=== PATIENT | male | born 1970 | race Caucasian/White ===

== ENCOUNTER → 2023-05-11 13:35 | Outpatient (CLI) | payer OTHER, SELFPAY ==
[2023-05-11 14:54] LABS: Add Manual Diff / Slide Review NO; Basophils Absolute Auto 100 /uL (0-100); Basophils Percent Auto 0.9 % (0-2); Eosinophils Absolute Auto 100 /uL (0-450); Eosinophils Percent Auto 1.2 % (2-4); Hematocrit 45.5 % (41-53); Hemoglobin 15.4 g/dL (13.5-17.5); Lymphocytes Absolute Auto 2500 /uL (1100-4500); Mean Corpuscular HGB Conc 33.8 % (30-36); Mean Corpuscular Hemoglobin 30.1 PG (26-34); Mean Corpuscular Volume 89.1 fL (80-100); Monocytes Absolute Auto 500 /uL (0-900); Monocytes Percent Auto 6.1 % (3-14); Neutrophils Absolute Auto 4700 /uL (1500-7000); Neutrophils Percent Auto 59.8 % (50-75); Platelet Count 270 X10^3/uL (150-400); Red Blood Cell Count 5.11 X10^6/uL (4.5-5.9); Red Cell Distribution Width 14.3 % (11.6-14.8); White Blood Cell Count 7.8 X10^3/uL (4.5-11.0)
[2023-05-11 15:02] LABS: Hemoglobin A1C% w Est Avg Glu 5.3 % (4.0-6.0)
[2023-05-11 15:16] LABS: Alanine Aminotransferase 33 IU/L (<50); Albumin 4.5 g/dL (3.5-5.0); Albumin Globulin Ratio 1.2 (1.0-2.8); Alkaline Phosphatase 59 U/L (38-126); Aspartate Aminotransferase 26 IU/L (17-59); BUN Creatinine Ratio 22.6 (6-22); Bilirubin Total 0.7 mg/dL (0.2-1.3); Blood Urea Nitrogen 21 mg/dL (9-20); Calcium 9.6 mg/dL (8.4-10.2); Carbon Dioxide 29 mmol/L (22-32); Chloride 104 mmol/L (98-107); Cholesterol 216 mg/dL (140-199); Estimated Glomerular Filt Rate > 60 mL/min (>60); Globulin 3.9 g/dL (1.7-4.1); Glucose 90 mg/dL (70-100); HDL Cholesterol 32 mg/dL (40-60); HEMOLYSIS < 15 (0-50); LDL Cholesterol Calculated 157 mg/dL (<100); Sodium 140 mmol/L (137-145); Total Protein 8.4 g/dL (6.3-8.2); Triglycerides 135 mg/dL (35-150); Uric Acid 9.9 mg/dL (3.5-8.5)
[2023-05-11 15:45] LABS: Prostate Specific Antigen 1.58 ng/mL (0.10-4.00)
== END ==
PROVIDERS: PCP Family Medicine; Referring Provider Family Medicine; Visit Provider Family Medicine
DX: Z00.00 Encounter for general adult medical examination without abnormal findings (principal); I10 Essential (primary) hypertension; M10.9 Gout, unspecified; Z80.0 Family history of malignant neoplasm of digestive organs
CPT/HCPCS: 36415; 80053; 80061; 83036; 84153; 84550; 85025

== ENCOUNTER → 2024-05-12 15:11 | Outpatient (CLI) | payer OTHER, SELFPAY ==
[2024-05-12 16:03] LABS: Hemoglobin A1C% w Est Avg Glu 5.4 % (4.0-6.0)
[2024-05-12 16:07] LABS: Alanine Aminotransferase 42 IU/L (<50); Albumin 4.5 g/dL (3.5-5.0); Albumin Globulin Ratio 1.6 (1.0-2.8); Alkaline Phosphatase 60 U/L (38-126); Aspartate Aminotransferase 33 IU/L (17-59); BUN Creatinine Ratio 14.6 (6-22); Bilirubin Total 0.8 mg/dL (0.2-1.3); Blood Urea Nitrogen 13 mg/dL (9-20); Calcium 9.2 mg/dL (8.4-10.2); Carbon Dioxide 27 mmol/L (22-32); Chloride 102 mmol/L (98-107); Cholesterol 216 mg/dL (140-199); Estimated Glomerular Filt Rate > 60 mL/min (>60); Globulin 2.8 g/dL (1.7-4.1); Glucose 94 mg/dL (70-100); HDL Cholesterol 34 mg/dL (40-60); HEMOLYSIS < 15 (0-50); LDL Cholesterol Calculated 155 mg/dL (<100); Potassium 3.8 mmol/L (3.4-5.1); Sodium 138 mmol/L (137-145); Total Protein 7.3 g/dL (6.3-8.2); Triglycerides 136 mg/dL (35-150); Uric Acid 9.2 mg/dL (3.5-8.5)
[2024-05-12 16:16] LABS: Rheumatoid Factor < 8.6 IU/mL (<12.0)
[2024-05-12 16:30] LABS: Erythrocyte Sedimentation Rate 9 MM/HR (0-15)
[2024-05-12 16:38] LABS: TSH w/ Reflex to FT4 2.66 uIU/mL (0.47-4.68)
== END ==
PROVIDERS: PCP Family Medicine; Referring Provider Family Medicine; Visit Provider Family Medicine
DX: M10.9 Gout, unspecified (principal); I10 Essential (primary) hypertension; R73.03 Prediabetes; E78.5 Hyperlipidemia, unspecified; M25.50 Pain in unspecified joint
CPT/HCPCS: 36415; 80053; 80061; 83036; 84443; 84550; 85598; 85613; 85651; 86038; 86200; 86430

== ENCOUNTER 2024-07-13 13:53 | Emergency (ER) | payer OTHER, SELFPAY ==
[2024-07-13 14:27] VITALS: BP 170/99; PULSE 89; RESP 20; TEMP 37.1; O2SAT 96; BMI 52.1
--- NOTE | 2024-07-13 15:10 | DI.US.S_ITS ---
PROCEDURE: US PERIPH VENOUS UP EXTREM RT INDICATIONS: right arm pain and swelling TECHNIQUE: Real-time imaging, as well as color and pulse Doppler interrogation, was performed of the upper extremity deep veins from the inferior neck to the antecubital fossa. COMPARISON: None. FINDINGS: The internal jugular vein, visualized portions of the subclavian vein, axillary, and brachial veins are free of intraluminal thrombus. Where physically possible, the veins are normally compressible. Color and pulse Doppler demonstrate normal intraluminal flow, with expected phasicity and pulsatility. Additional scanning of the cephalic and basilic veins of the superficial system demonstrates normal compressibility, without thrombus. IMPRESSION: No findings of upper extremity deep venous thrombosis can be seen. Dictated by: Mic Garcia M.D. on 07/13/2024 at 16:40 Approved by: Mic Garcia M.D. on 07/13/2024 at 16:40
[2024-07-13 15:45] LABS: Add Manual Diff / Slide Review NO; Basophils Absolute Auto 100 /uL (0-100); Basophils Percent Auto 0.5 % (0-2); Eosinophils Absolute Auto 100 /uL (0-450); Eosinophils Percent Auto 0.6 % (2-4); Hematocrit 42.4 % (41-53); Hemoglobin 14.5 g/dL (13.5-17.5); Lymphocytes Absolute Auto 1700 /uL (1100-4500); Lymphocytes Percent Auto 15.7 % (25-40); Mean Corpuscular HGB Conc 34.2 % (30-36); Mean Corpuscular Hemoglobin 31.1 PG (26-34); Monocytes Absolute Auto 800 /uL (0-900); Monocytes Percent Auto 7.9 % (3-14); Neutrophils Absolute Auto 8100 /uL (1500-7000); Neutrophils Percent Auto 75.3 % (50-75); Platelet Count 246 X10^3/uL (150-400); Red Blood Cell Count 4.65 X10^6/uL (4.5-5.9); Red Cell Distribution Width 13.4 % (11.6-14.8); White Blood Cell Count 10.7 X10^3/uL (4.5-11.0)
[2024-07-13 15:56] LABS: Alanine Aminotransferase 20 IU/L (<50); Albumin 4.4 g/dL (3.5-5.0); Albumin Globulin Ratio 1.3 (1.0-2.8); Alkaline Phosphatase 50 U/L (38-126); Aspartate Aminotransferase 18 IU/L (17-59); BUN Creatinine Ratio 10.3 (6-22); Bilirubin Total 1.2 mg/dL (0.2-1.3); Blood Urea Nitrogen 10 mg/dL (9-20); C-Reactive Protein Quant 6.2 mg/dL (<1.0); Calcium 9.2 mg/dL (8.4-10.2); Carbon Dioxide 30 mmol/L (22-32); Chloride 101 mmol/L (98-107); Estimated Glomerular Filt Rate > 60 mL/min (>60); Globulin 3.3 g/dL (1.7-4.1); Glucose 106 mg/dL (70-99); HEMOLYSIS < 15 (0-50); Potassium 3.5 mmol/L (3.4-5.1); Sodium 140 mmol/L (137-145); Total Protein 7.7 g/dL (6.3-8.2); Uric Acid 8.3 mg/dL (3.5-8.5)
[2024-07-13 16:04] LABS: Erythrocyte Sedimentation Rate 46 MM/HR (0-15)
--- NOTE | 2024-07-13 17:10 | ED.EXTPRO ---
HPI - Extremity Problem <Noris Christopher PA-C - Last Filed: 07/13/24 19:46> General Chief complaint: Extremity Problem,Nontraumatic Stated complaint: Rt arm and wrist swollen x 3 days - pain Time Seen by Provider: 07/13/24 15:08 Source: patient Mode of arrival: Ambulatory History of Present Illness HPI Narrative: Mr. Yan is a very pleasant 54-year-old male with a past medical history of gout, hypertension who presents to the emergency department for right wrist and elbow pain and swelling x3 days. Patient states he struggles with a history of gout that moves throughout his various joints. He has never had a joint aspiration but has been told his uric acid levels are high and his symptoms always respond to prednisone. Typically he gets joint inflammation in the lower legs however he is now reporting his right elbow, right wrist and right forearm are feeling extremely painful and swollen consistent with prior gout. Denies any direct trauma to the arm, no numbness tingling or weakness. No fevers, chills, redness, nausea, vomiting, flu-like symptoms. He is requesting prednisone, states his PCP office was unable to prescribe it for him. Related Data Previous Rx's Medication Instructions Recorded prednisone 50 mg tablet 50 mg PO DAILY PRN gout #7 tabs 05/12/24 probenecid 500 mg tablet 500 mg PO BID #60 tabs 05/12/24 verapamil 80 mg tablet 80 mg PO BEDTIME #90 tabs 05/22/24 lisinopril 40 mg tablet 40 mg PO BID #180 tabs 05/24/24 prednisone 10 mg tablets in a dose See Rx Instructions PO .COMPLEX 07/13/24 pack #21 ea Allergies Allergy/AdvReac Type Severity Reaction Status Date / Time No Known Drug Allergies Allergy Unverified 05/12/24 14:27 Review of Systems <Noris Christopher PA-C - Last Filed: 07/13/24 19:46> Review of Systems ROS Unobtainable: All systems reviewed & are unremarkable except as noted in HPI and below Patient History <Noris Christopher PA-C - Last Filed: 07/13/24 19:46> Medical History Polyarthralgia Hyperlipidemia Chicken pox Kidney stones (~1989) Diverticular disease (~2006) Family history of colon cancer Preventative health care Gout (~1989) Hypertension (~1989) Family History Father Cancer Hypertension Stroke Mother Cancer Hypertension Grandfather Clovis-Creutzfeldt disease Grandmother Hypertension Grandfather Hypertension Grandmother Hypertension Social History Smoking Status: Never smoker Smoking Status: Never smoker Exam <Noris Christopher PA-C - Last Filed: 07/13/24 19:46> Narrative Exam Narrative: GENERAL: 54 year old patient appears stated age. Obese patient, in no acute distress. HEAD: Atraumatic. Normocephalic. NECK: Trachea midline. Cervical ROM intact. CARDIOVASCULAR: Regular rate and rhythm. RESPIRATORY: Nonlabored respirations. Speaking in clear, full sentences. Clear to auscultation. EXTREMITIES: Patient has mild but diffuse edema of the right upper extremity from the elbow through the hand. Brisk capillary refill and palpable radial pulse. His position of comfort is with the right elbow flexed, he has pain with range of motion of both the elbow and the wrist. Sensation intact to light touch. Mild erythema on the dorsal aspect of the right wrist however patient states that this is from rubbing it. NEURO: AOx3. Clear speech. SKIN: No rash of visible areas Initial Vital Signs Initial Vital Signs: Vital Signs Temperature 98.8 F 07/13/24 14:27 Pulse Rate 89 07/13/24 14:27 Respiratory Rate 20 07/13/24 14:27 Blood Pressure 170/99 H 07/13/24 14:27 Pulse Oximetry 96 07/13/24 14:27 Oxygen Delivery Method Room Air 07/13/24 14:27 <Mackenzie Diaz MD - Last Filed: 07/16/24 05:39> Initial Vital Signs Initial Vital Signs: Vital Signs Temperature 98.8 F 07/13/24 14:27 Pulse Rate 89 07/13/24 14:27 Respiratory Rate 20 07/13/24 14:27 Blood Pressure 170/99 H 07/13/24 14:27 Pulse Oximetry 96 07/13/24 14:27 Oxygen Delivery Method Room Air 07/13/24 14:27 Course <Noris Christopher PA-C - Last Filed: 07/13/24 19:46> Orders Ordered: Discontinued Medications Ketorolac Tromethamine (Ketorolac 30 Mg/Ml Vial) 30 mg IM NOW ONE Stop: 07/13/24 17:26 Last Admin: 07/13/24 17:33 Dose: 30 mg Documented By: RB Prednisone (Prednisone 20 Mg Tablet) 60 mg PO NOW ONE Stop: 07/13/24 17:26 Last Admin: 07/13/24 17:33 Dose: 60 mg Documented By: RB Vital Signs Vital signs: Vital Signs - 8 hr 07/13/24 14:27 07/13/24 17:54 Temperature 98.8 F 98.1 F Pulse Rate 89 76 Respiratory Rate 20 15 Blood Pressure 170/99 H 176/99 H Pulse Oximetry 96 98 Oxygen Delivery Method Room Air Room Air <Mackenzie Diaz MD - Last Filed: 07/16/24 05:39> Orders Ordered: Discontinued Medications Ketorolac Tromethamine (Ketorolac 30 Mg/Ml Vial) 30 mg IM NOW ONE Stop: 07/13/24 17:26 Last Admin: 07/13/24 17:33 Dose: 30 mg Documented By: RB Prednisone (Prednisone 20 Mg Tablet) 60 mg PO NOW ONE Stop: 07/13/24 17:26 Last Admin: 07/13/24 17:33 Dose: 60 mg Documented By: RB Vital Signs Vital signs: Vital Signs - 8 hr 07/13/24 14:27 07/13/24 17:54 Temperature 98.8 F 98.1 F Pulse Rate 89 76 Respiratory Rate 20 15 Blood Pressure 170/99 H 176/99 H Pulse Oximetry 96 98 Oxygen Delivery Method Room Air Room Air MDM - Extremity (Nontraumatic) <Noris Christopher PA-C - Last Filed: 07/13/24 19:46> Medical Records Attestation: I reviewed the patient's medical records. Lab Data 07/13/24 15:33 07/13/24 15:33 Labs: Lab Results 07/13/24 Range/Units 15:33 WBC 10.7 (4.5-11.0) X10^3/uL RBC 4.65 (4.5-5.9) X10^6/uL Hgb 14.5 (13.5-17.5) g/dL Hct 42.4 (41-53) % MCV 91.0 (80-100) fL MCH 31.1 (26-34) PG MCHC 34.2 (30-36) % RDW 13.4 (11.6-14.8) % Plt Count 246 (150-400) X10^3/uL Neut % (Auto) 75.3 H (50-75) % Lymph % (Auto) 15.7 L (25-40) % [place] % (Auto) 7.9 (3-14) % Eos % (Auto) 0.6 L (2-4) % Baso % (Auto) 0.5 (0-2) % Neut # (Auto) 8100 H (4487-8958) /uL Lymph # (Auto) 1700 (6549-2580) /uL [place] # (Auto) 800 (0-900) /uL Eos # (Auto) 100 (0-450) /uL Baso # (Auto) 100 (0-100) /uL ESR 46 H (0-15) MM/HR Sodium 140 (137-145) mmol/L Potassium 3.5 (3.4-5.1) mmol/L Chloride 101 (98-107) mmol/L Carbon Dioxide 30 (22-32) mmol/L BUN 10 (9-20) mg/dL Creatinine 0.97 (0.66-1.25) mg/dL Estimated GFR > 60 (>60) mL/min BUN/Creatinine Ratio 10.3 (6-22) Glucose 106 H (70-99) mg/dL Uric Acid 8.3 (3.5-8.5) mg/dL Calcium 9.2 (8.4-10.2) mg/dL Total Bilirubin 1.2 (0.2-1.3) mg/dL AST 18 (17-59) IU/L ALT 20 (<50) IU/L Alkaline Phosphatase 50 (38-126) U/L C-Reactive Protein 6.2 H (<1.0) mg/dL Total Protein 7.7 (6.3-8.2) g/dL Albumin 4.4 (3.5-5.0) g/dL Globulin 3.3 (1.7-4.1) g/dL Albumin/Globulin Ratio 1.3 (1.0-2.8) Imaging Data US RUE Venous: Radiologist's Impression: PROCEDURE: US PERIPH VENOUS UP EXTREM RT INDICATIONS: right arm pain and swelling TECHNIQUE: Real-time imaging, as well as color and pulse Doppler interrogation, was performed of the upper extremity deep veins from the inferior neck to the antecubital fossa. COMPARISON: None. FINDINGS: The internal jugular vein, visualized portions of the subclavian vein, axillary, and brachial veins are free of intraluminal thrombus. Where physically possible, the veins are normally compressible. Color and pulse Doppler demonstrate normal intraluminal flow, with expected phasicity and pulsatility. Additional scanning of the cephalic and basilic veins of the superficial system demonstrates normal compressibility, without thrombus. IMPRESSION: No findings of upper extremity deep venous thrombosis can be seen. Dictated by: Mic Garcia M.D. on 07/13/2024 at 16:40 Approved by: Mic Garcia M.D. on 07/13/2024 at 16:40 MDM Narrative Medical decision making narrative: 54-year-old male with a past medical history of gout, hypertension who presents to the emergency department for right wrist and elbow pain and swelling x3 days. Differential diagnosis includes but is not limited to rheumatoid arthritis, polyarthralgia, gout, polymyalgia rheumatica, pseudogout, DVT, cellulitis, etc. On exam the patient is in no acute distress, nontoxic appearing, vital signs appropriate except for elevated blood pressure. He is not febrile or tachycardic. He has right upper extremity nontraumatic edema and pain in his right upper extremity joints including the elbow, hand, fingers. We will obtain right upper extremity ultrasound, CBC, CMP, inflammatory markers, Uric acid. Labs reveal normal WBC count 10.7. Normal platelets 246. ESR is elevated at 46. CRP is elevated at 6.2 Normal uric acid 8.3. At this time I am concerned for a possible autoimmune arthritis, patient does have a family history of rheumatoid arthritis, and he has suffered with similar arthralgias and other joints before. He is not having any fever, tachycardia, leukocytosis, flu-like symptoms or focal joint pain concerning for a septic arthritis. Ultrasound is negative for DVT and he does not clinically have cellulitis. We will treat with prednisone and Toradol for suspected inflammatory arthritis, I did recommend that the patient follow up with rheumatology for further evaluation given his elevated inflammatory markers today. Discussed strict ED return precautions, risks of NSAIDs and steroids together, follow up with PCP and Rheumatology. Patient his have verbalized understanding of all information agreeable with the plan. He is stable for discharge home. <Mackenzie Diaz MD - Last Filed: 07/16/24 05:39> Lab Data Labs: Lab Results 07/13/24 Range/Units 15:33 WBC 10.7 (4.5-11.0) X10^3/uL RBC 4.65 (4.5-5.9) X10^6/uL Hgb 14.5 (13.5-17.5) g/dL Hct 42.4 (41-53) % MCV 91.0 (80-100) fL MCH 31.1 (26-34) PG MCHC 34.2 (30-36) % RDW 13.4 (11.6-14.8) % Plt Count 246 (150-400) X10^3/uL Neut % (Auto) 75.3 H (50-75) % Lymph % (Auto) 15.7 L (25-40) % [place] % (Auto) 7.9 (3-14) % Eos % (Auto) 0.6 L (2-4) % Baso % (Auto) 0.5 (0-2) % Neut # (Auto) 8100 H (7936-1278) /uL Lymph # (Auto) 1700 (7388-1500) /uL [place] # (Auto) 800 (0-900) /uL Eos # (Auto) 100 (0-450) /uL Baso # (Auto) 100 (0-100) /uL ESR 46 H (0-15) MM/HR Sodium 140 (137-145) mmol/L Potassium 3.5 (3.4-5.1) mmol/L Chloride 101 (98-107) mmol/L Carbon Dioxide 30 (22-32) mmol/L BUN 10 (9-20) mg/dL Creatinine 0.97 (0.66-1.25) mg/dL Estimated GFR > 60 (>60) mL/min BUN/Creatinine Ratio 10.3 (6-22) Glucose 106 H (70-99) mg/dL Uric Acid 8.3 (3.5-8.5) mg/dL Calcium 9.2 (8.4-10.2) mg/dL Total Bilirubin 1.2 (0.2-1.3) mg/dL AST 18 (17-59) IU/L ALT 20 (<50) IU/L Alkaline Phosphatase 50 (38-126) U/L C-Reactive Protein 6.2 H (<1.0) mg/dL Total Protein 7.7 (6.3-8.2) g/dL Albumin 4.4 (3.5-5.0) g/dL Globulin 3.3 (1.7-4.1) g/dL Albumin/Globulin Ratio 1.3 (1.0-2.8) Discharge Plan Departure Patient Disposition: Home Clinical Impression: Polyarthralgia, Elevated blood pressure reading Instructions: DI for Arthralgia Activity Restrictions/Additional Instructions: Dear Yan, Thank you for coming to the emergency department. Today you were evaluated for right arm pain and swelling. The ultrasound revealed no blood clots. Your lab work does reveal elevated inflammatory markers however. I would like you to follow up with your primary care doctor as I do believe you would benefit from seeing a casing builder for further evaluation. I have prescribed you a prednisone Dosepak to take in addition to [id number] ibuprofen and Tylenol however please be aware that NSAIDs and steroids both can damage the stomach lining it is important to take these prescriptions with food and separate them throughout the day. Please take Ibuprofen (Motrin/Advil) or Acetaminophen (Tylenol) for pain. These are available over the counter. You may take Ibuprofen 600 mg every 8 hours with food for pain. You may also take Acetaminophen 650 mg every 4-6 hours for pain. Do not exceed 3000 mg of Tylenol a day as this can cause liver damage. Do not drink alcohol with either of these medications. Please return to the emergency department if you develop any new or worsening symptoms, fevers, redness of the arm or other concerns. Today in the emergency department your blood pressure was elevated, please take home blood pressure medications as prescribed, take your blood pressure daily, right down the value and follow up with the primary care doctor for further management. Return to the emergency department if you ever develop chest pain shortness breath or other concerns. Please follow up with your primary care doctor within the next 2-3 days for ER follow-up. (If you do not have a PCP you can call [phone]. to schedule an appointment with an [facility] Primary Care Provider) IF YOU DEVELOP ANY NEW OR WORSENING SYMPTOMS, RETURN TO THE ER! Please read the attached instructions, they highlight more specific treatments and interventions for you at home. Thank you for letting me participate in your care, Noris Christopher PA-C Prescriptions: New prednisone 10 mg tablets,dose pack See Rx Instructions .ROUTE .COMPLEX Qty: 21 0RF Rx Instructions: orally per package directions No Action verapamil 80 mg tablet 80 mg PO BEDTIME Qty: 90 3RF lisinopril 40 mg tablet 40 mg PO BID Qty: 180 3RF Rx Instructions: continue taking 40 bid probenecid 500 mg tablet 500 mg PO BID Qty: 60 5RF prednisone 50 mg tablet 50 mg PO DAILY PRN (Reason: gout) Qty: 7 2RF Referrals: Stu Steele DO [Primary Care Provider] - Stand Alone Forms: Patient Portal/API/Survey, Work Release Note ED Sign-out <Mackenzie Diaz MD - Last Filed: 07/16/24 05:39> Cosign ED Attending Cosignature Attestation: I was immediately available in the department for consultation throughout this patient's visit. Mackenzie Diaz MD
[2024-07-13] MEDS: predniSONE 20 MG TABLET 60 MG PO (17:33)
[2024-07-13] MEDS: KETOROLAC 30 MG/ML VIAL IM (17:33)
--- NOTE | 2024-07-13 17:47 | PC.NURSE ---
This RN obeserved all interactions between student RN and this patient. This RN reviewed all of student nurse charting and agree with documentation.
[2024-07-13 17:54] VITALS: BP 176/99; PULSE 76; RESP 15; TEMP 36.7; O2SAT 98
== END 2024-07-13 18:02 | disposition home or self-care (01) ==
PROVIDERS: Emergency Provider Physician Assistant; PCP Family Medicine
DX: M25.531 Pain in right wrist (principal); M25.521 Pain in right elbow; R03.0 Elevated blood-pressure reading, without diagnosis of hypertension
CPT/HCPCS: 36415; 80053; 84550; 85025; 85651; 86140; 93971; 96372; 99284; J1885